=== PATIENT | male | born 1965 | race Caucasian/White ===

== ENCOUNTER 2025-05-01 08:11 | Emergency (ER) | payer BC, SELFPAY ==
--- OUTSIDE RECORDS SUMMARY | 2025-05-01 08:18 | XMS_ITS | Encounter Summary ---
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 Gender Identity Not on file Sexual Orientation Not on file documented as of this encounter Plan of Treatment Not on file documented as of this encounter Procedures Procedure Name Priority Date/Time Associated Diagnosis Comments SCAN - RADIOLOGY/IMAGING 11/21/2018 documented in this encounter Results * SCAN - RADIOLOGY/IMAGING (11/21/2018) Anatomical Region Laterality Modality Other us Provider Scanning Final Result documented in this encounter Visit Diagnoses Not on filedocumented in this encounter Care Teams Logistics Tech Relationship Specialty Start Date End Date Edwin Galeano MD [address] [place] [address] PCP - General 09/04/17 documented as of this encounter
--- OUTSIDE RECORDS SUMMARY | 2025-05-01 08:19 | XMS_ITS | Clinical Summary ---
Author Organization [facility] Address Formerly [facility] [place] [address] Care Team Providers Care Wood Patternmaker Name Role Phone Keyana Carrizales PA-C Primary Care Provider [phone] Allergies No known active allergies Medications XELJANZ XR 11 MG TABLET SR 24 HR 24 hour tablet Take 11 mg by mouth daily. 04/30/2024 Active Social History Tobacco Use Types Packs/Day Years Used Date Smoking Tobacco: Never Passive Smoke Exposure: Never Smokeless Tobacco: Never Tobacco Cessation:Counseling Given: Not Answered Alcohol Use Standard Drinks/Week Comments Yes 0 (1 standard drink = 0.6 oz pur e alcohol) Sex and Gender Information Value Date Recorded Sex Assigned at Not on file Legal Sex Male 5:51 PM CDT Gender Identity Not on file Sexual Orientation Not on file Last Filed Vital Signs Vital Sign Reading Time Taken Comments Blood Pressure 136/62 05/24/2024 3:55 AM MILL ATTENDANT Pulse 81 05/24/2024 3:55 AM MILL ATTENDANT Temperature 36.6 C (97.9 F) 05/24/2024 3:55 AM MILL ATTENDANT Respiratory Rate 14 05/24/2024 3:55 AM MILL ATTENDANT Oxygen Saturation 97% 05/24/2024 3:55 AM MILL ATTENDANT Inhaled Oxygen Concentration - - Weight 108.9 kg (240 lb) 05/24/2024 1:23 AM MILL ATTENDANT Height 172.7 cm (5' 8) 05/24/2024 1:23 AM MILL ATTENDANT Body Mass Index 36.49 05/24/2024 1:23 AM MILL ATTENDANT Plan of Treatment Health Maintenance Due Date Last Done Comments Colorectal Cancer Screening Colonoscopy (10 Years) 1966 Annual Physical 1969 Hepatitis C 1984 Hepatitis B Vaccines (1 of 3 - 19+ 3-dose series) 1985 COVID-19 Vaccine ( - 2024-2 6 season) 2025 Influenza Adult (#1) 2025 05/16/2024, 05/03/2023 DTaP, Tdap and Td Vaccines ( 3 - Td or Tdap) 01/09/2028 01/08/2018, 03/16/2013 Zoster Vaccines Completed 12/24/2020, 10/16/2020 Pneumococcal Vaccine: 50+ Years Completed 05/03/2023 Hepatitis A Vaccines Aged Out No long er eligible based on patient's age to complete this topic Meningococcal B Vaccine Aged Out No l onger eligible based on patient's age to complete this topic Meningococcal Vaccine Aged Out No kaiden sandra eligible based on patient's age to complete this topic RSV Immunizations Under 20 Months Aged Out No longer eligible b ased on patient's age to complete this topic Additional Health Concerns Infection Onset Date Last 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
--- OUTSIDE RECORDS SUMMARY | 2025-05-01 08:19 | XMS_ITS | Clinical Summary ---
Author Organization [facility] Address [address] [place] [address] Care Team Providers Care Dress Finisher Name Role Phone Edwin Galeano MD Primary Care Provider [phone] Allergies No known active allergies Medications ibuprofen (ADVIL,MOTRIN) 800 mg tablet Take 1 tablet (800 mg total) by mouth 3 (three) times a day as needed 01/09/20 18 Active diclofenac sodium (VOLTAREN) 1 % gelIndications: Osteoarthritis Apply 4 g topically 4 (four) times a day 50 g 2 05/16/20 24 Active Xeljanz XR 11 mgIndications:H igh risk medication use,Rheumatoid arthritis with positive rheumatoid factor, involving unspecified site (HCC) TAKE 1 TABLET DAILY 30 tablet 2 04/07/20 25 Active hydroxychloroqu ine (PLAQUENIL) 200 mg tabletIndicatio ns:Rheumatoid arthritis with positive rheumatoid factor, involving unspecified site (HCC) Take 2 tablets (400 mg total) by mouth daily 180 tablet 1 08/22/19 25 025 Discontinued(Juan marin Reported) tofacitinib (Xeljanz XR) 11 mgIndications:H igh risk medication use,Rheumatoid arthritis with positive rheumatoid factor, involving unspecified site (HCC) Take 1 tablet (11 mg total) by mouth daily 90 tablet 01/28/20 25 025 Discontinued Active Problems Problem Noted Date Diagnosed Date High risk medication use 01/30/2025 Assessment & Plan (01/30/2025 9:13 AM CDT): Recently started HCQ 400mg daily. No ocular contraindications to continued use. HVF 10-2 and OCT 5 line macula normal today. Return in 1 year for DFE- after 5 years of cumulative use will repeat HVF 10-2 and OCT 5 line macula annually with DFE per AAO guidelines. Rheumatoid arthritis with positive rheumatoid fa ctor 01/30/2025 Age-related nuclear cataract of both eyes 2024 Assessment & Plan (01/30/2025 9:50 AM CDT): NVS, follow. Rheumatoid arthritis involvi ng both hands with negative rheumatoid factor 05/16/2024 Arthritis 06/15/2017 Encounters Date Type Department Care Team Description 04/10/2025 11:20 AM CDT Lab [facility] Endocrinology Metabolism and Lipid [address] [place] [phone] High risk medication use; Rheumatoid arthritis involving both hands with negative rheumatoid factor (HCC) 04/10/2025 10:56 AM CDT - 04/10/2025 11:59 PM CDT Hospital Encounter [facility] [address] [place] [address] High risk medication use; Rheumatoid arthritis involving both hands with negative rheumatoid factor (HCC) Discharge Disposition: Discharge to home or self care 04/10/2025 9:30 AM CDT Office Visit [facility] Rheumatology [address] [place] [phone] Home Mccormack MD High risk medication use (Primary Dx); Rheumatoid arthritis involving both hands with negative rheumatoid factor (HCC) 04/10/2025 Results Follow-Up [facility] Rheumatology [address] [place] [id number] Home Mccormack MD CBC with auto differential, Comprehensive metabolic panel, CRP (acute phase), Additional followed-up results: 2 01/30/2025 9:40 AM CDT Office Visit [facility] Ophthalmology [address] [address] Steska, Alexander E., OD Age-related nuclear cataract of both eyes (Primary Dx); High risk medication use; Rheumatoid arthritis with positive rheumatoid factor, involving unspecified site (HCC) from Last 3 Months Immunizations Immunization Administration Dates Next Due Influenza, Trivalent, High D ose, Split, Preservative Free, Intramuscular 05/16/2024,05/03/2023 Pneumococcal Conjugate Pcv20 05/03/2023 Tdap 01/08/2018,03/16/2013 ZOSTER Recombinant 12/24/2020,10/16/2020 Surgical History Surgery Date Site/Laterality Comments BACK SURGERY TOTAL HIP ARTHROPLASTY 09/21/2017 Right TOTAL HIP ARTHROPLASTY 11/21/2017 Left Medical History Medical History Date Comments Osteoarthritis Anemia Obesity Family History Medical History Relation Name Comments Diabetes Father Hypertension Mother Relation Name Status Comments Father Alive Mother Alive Social History Tobacco Use Types Packs/Day Years Used Date Smoking Tobacco: Never Smokeless Tobacco: Never Tobacco Cessation:Counseling Given: Not Answered Sex and Gender Information Value Date Recorded Sex Assigned at Not on file Legal Sex Male 7:48 PM NETWORK 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 Gender Identity Not on file Sexual Orientation Not on file Obstetrics History Last Filed Vital Signs Vital Sign Reading Time Taken Comments Blood Pressure 158/90 04/10/2025 10:06 AM CDT Pulse 59 04/10/2025 10:06 AM CDT Temperature 36.7 C (98 F) 08/22/2024 9:01 AM NETWORK LIAISON Respiratory Rate - - Oxygen Saturation 96% 11/22/2017 7:40 AM CDT Inhaled Oxygen Concentration - - Weight 104.3 kg (230 lb) 04/10/2025 10:06 AM CDT Height 175.3 cm (5' 9) 04/10/2025 10:06 AM CDT Body Mass Index 33.97 04/10/2025 10:06 AM CDT Plan of Treatment Health Maintenance Due Date Last Done Comments Depression Screening 1966 Prostate Cancer Screening-PSA 1966 Regular Well Visit/Exam 18-64 1984 Influenza Vaccine (#1) 2025 05/16/2024, 2022 Colon Cancer Screening-Colonoscopy 08/30/2027 08/30/2017 DTaP/Tdap/Td Vaccine (3 - Td or Tdap) 01/09/2028 01/08/2018, 03/16/2013 Colon Cancer Screening-CT Colonography Discontinued 08/30/2017 Colon Cancer Screening-DNA Stool Discontinued 08/30/2017 Colon Cancer Screening-FIT Discontinued 08/30/2017 Colon Cancer Screening-Sigmoidoscopy Discontinued 08/30/2017 Hepatitis B Screening Completed 10/05/2020 Hepatitis C Screening Completed 10/05/2020 , 08/15/2019, 10/05/2017, Additional history exists Zoster Vaccine Completed 12/24/2020, 10/16/2020 Pneumococcal vaccine <65 Aged Out 05/03/2023 No longer eligible based on patient's age to complete this topic Procedures Procedure Name Priority Date/Time Associated Diagnosis Comments LIPID PANEL Routine 04/10/2025 10:56 AM CDT High risk medication use Rheumatoid arthritis involving both hands with negative rheumatoid factor (HCC) ERYTHROCYTE SEDIMENTATION RATE Routine 04/10/2025 10:56 AM CDT High risk medication use Rheumatoid arthritis involving both hands with negative rheumatoid factor (HCC) CRP (ACUTE PHASE) Routine 04/10/2025 10: 56 AM CDT High risk medication use Rheumatoid arthritis involving both hands with negative rheumatoid factor (HCC) COMPREHENSIVE METABOLIC PANEL Routine 04/10/2025 10:56 AM CDT High risk medication use Rheumatoid arthritis involving both hands with negative rheumatoid factor (HCC) CBC WITH AUTO DIFFERENTIAL Routine 04/10/2025 10:56 AM CDT High risk medication use Rheumatoid arthritis involving both hands with negative rheumatoid factor (HCC) T-SPOT.TB Routine 04/10/2025 10:56 AM CDT High risk medication use Rheumatoid arthritis involving both hands with negative rheumatoid factor (HCC) OCT, RETINA - OU - BOTH EYES Routine 01/30/2025 9:10 AM CDT High risk medication use LOPEZ VISUAL FIELD - OU - BOTH EYES Routine 01/30/2025 9:10 AM CDT High risk medication use HEPATITIS C ANTIBODY Routine 10/05/2020 12:40 PM CDT High risk medication use Rheumatoid arthritis with positive rheumatoid factor, involving unspecified site (HCC) COLONOSCOPY REPORT 08/30/2017 from Last 3 Months or Most Recently Relevant to Health Maintenance Results * T-SPOT.TB Blood (04/10/2025 10:56 AM CDT) T-SPOT.TB Negative SeeBelow Comment: Normal Value: Negative A negative test result does not exclude the possibility of exposure to or infection with Mycobacterium tuberculosis (M. tuberculosis). Patients with recent exposure to TB infected individuals exhibiting a negative T-SPOT.TB result should be considered for retesting within 6 weeks or if other relevant clinical symptoms indicate. Results from T-SPOT.TB testing must be used in conjunction with each individual's epidemiological history, current medical status, and results of other diagnostic evaluations. The T-SPOT.TB test is qualitative and results are reported as positive, borderline or negative, given that the test controls perform as expected. In line with the Centers for Disease Control and Prevention's 2010 recommendation to report quantitative measurements alongside the qualitative result, the laboratory provides spot counts for informational purposes only. The T-SPOT.TB test should not be interpreted as a quantitative test. T-SPOT.TB Panel A Spot Count 0 [facility] T-SPOT.TB Panel B Spot Count 0 [facility] T-SPOT.TB Negative Control Passed [facility] T-SPOT.TB Positive Control Passed [facility] Comment: Test Performed at: [employer] [facility] [employer] [address] [place] [id number] NATHANIEL RG,PHD Blood 04/10/2025 10:5 6 AM CDT 04/10/2025 1:44 PM CDT us Home Mccormack MD LAB MICROBIOLOGY - GENER AL ORDERABLES Final Result [facility] Department [place] [address] * (ABNORMAL) CBC with auto differential (04/10/2025 10:56 AM CDT) White Blood Count 14.8(H) 3.6 - 11.2 K/uL [facility] RBC 4.49 4.06 - 5.63 M/uL [facility] Hemoglobin 12.8(L) 13.0 - 17.5 g/dL [facility] Hematocrit 39.3(L) 40.7 - 50.3 % [facility] MCV 87.5 80.0 - 97.6 fL [facility] MCH 28.5 26.7 - 33.7 pg [facility] MCHC 32.5(L) 32.7 - 35.5 g/dL [facility] RBC Dist Width 16.2 12.3 - 17.0 % [facility] Platelet Count 433 140 - 440 K/uL [facility] MPV 7.2 6.8 - 10.4 fL [facility] Neutrophils % 84.4(H) 38.7 - 74.5 % [facility] Lymphocyte % 8.3(L) 20.0 - 54.3 % [facility] Monocytes % 6.2 4.3 - 13.5 % [facility] Eosinophils % 0.8 0.0 - 6.0 % [facility] Basophil % 0.3 0.0 - 3.0 % [facility] Absolute Neutrophil 12.5(H) 1.8 - 6.6 K/uL [facility] Absolute Lymphocyte 1.2 0.8 - 3.3 K/uL [facility] Absolute Monocyte 0.9 0.2 - 1.2 K/uL [facility] Absolute Eosinophil 0.1 0.0 - 0.5 K/uL [facility] Absolute Basophil 0.0 0.0 - 0.2 K/uL [facility] Nucleated RBC % 0.0 0.0 - 0.4 /100 WBC [facility] Blood 04/10/2025 10:5 6 AM CDT 04/10/2025 11:14 AM CDT us Home Mccormack MD LAB BLOOD ORDERABLES Fin al Result [facility] * (ABNORMAL) Erythrocyte sedimentation rate (04/10/2025 10:56 AM CDT) Erythrocyte Sedimentation Rate 68(H) <20 mm/hr [facility] Blood 04/10/2025 10:5 6 AM CDT 04/10/2025 11:14 AM CDT Home Mccormack MD LAB BLOOD ORDERABLES Fin al Result Performing Organization Address [facility] Co de Phone Number [facility] * (ABNORMAL) CRP (acute phase) (04/10/2025 10:56 AM CDT) C-Reactive Protein, Acute 38.4(H) <5.0 mg/L [facility] Blood 04/10/2025 10:5 6 AM CDT 04/10/2025 11:14 AM CDT Home Mccormack MD LAB BLOOD ORDERABLES Fin al Result Performing Organization Address [facility] Co de Phone Number [facility] * (ABNORMAL) Lipid panel (04/10/2025 10:56 AM CDT) Triglycerides 149 <150 mg/dL [facility] Comment: Desirable: <150 mg/dL, fasting <175 mg/dL, non-fasting Total Cholesterol 231(H) <200 mg/dL [facility] Total HDL-C Direct 68 >40 mg/dL [facility] Comment:Repeated and Verifie d Non-HDL cholesterol 163 <220 mg/dL [facility] Calculated LDL Chol 137 <190 mg/dL [facility] Blood 04/10/2025 10:5 6 AM CDT 04/10/2025 11:14 AM CDT Narrative [facility] - 04/10/2025 12:29 PM CDT Beginning November 05, 2024, LDL are now calculated by the Painter-NIH equation (KYLEE Cardiol 2020;5:540-8) which is more accuarate than the older Friedewald equation in patients with low LDL cholesterol or high triglycerides. For adults ages 40-79, the ACC/AHA recommends discussing your 10-year atherosclerotic cardiovascular disease risk with your health care provider. https://www.acc.org/ASCVDApp us Home Mccormack MD LAB BLOOD ORDERABLES Fin al Result [facility] * (ABNORMAL) Comprehensive metabolic panel (04/10/2025 10:56 AM CDT) Total Protein 8.7(H) 6.1 - 8.4 g/dL [facility] Albumin 4.2 3.5 - 5.2 g/dL [facility] Calcium 9.9 8.6 - 10.3 mg/dL [facility] BUN 12 7 - 23 mg/dL [facility] Total Bilirubin 0.34 0.20 - 1.40 mg/dL [facility] Alk Phos, Total 90 35 - 129 IU/L [facility] AST (SGOT) 23 11 - 47 IU/L [facility] ALT (SGPT) 16 6 - 53 IU/L [facility] Creatinine 1.16 0.70 - 1.30 mg/dL [facility] Sodium 141 135 - 145 mmol/L [facility] Potassium 5.0 3.3 - 5.1 mmol/L [facility] Chloride 102 95 - 107 mmol/L [facility] CO2 Content 26 21 - 29 mmol/L [facility] Glucose 90 64 - 99 mg/dL [facility] Comment: NONFASTING GLUCOSE RANGE = 64-199 mg/dL FASTING GLUCOSE 64 - 99 = NORMAL FASTING GLUCOSE 100 - 125 = IMPAIRED FASTING GLUCOSE FASTING GLUCOSE >=126 = PROVISIONAL DIAGNOSIS OF DIABETES eGFR 73.0 >60.0 mL/min/1.7 3 m2 [facility] Comment:eGFR is calculated b y the CKD-EPIcr() equation (2020). Blood 04/10/2025 10:5 6 AM CDT 04/10/2025 11:14 AM CDT Home Mccormack MD LAB BLOOD ORDERABLES Fin al Result [facility] * OCT, Retina - OU - Both Eyes (01/30/2025 9:10 AM CDT) Anatomical Region Laterality Modality Head Optical Coherenc e Tomography Narrative 01/30/2025 9:10 AM CDT Right Eye Quality was good. Scan locations included subfoveal. Findings include normal observations. Left Eye Quality was good. Scan locations included subfoveal. Findings include normal observations. Notes No EZ loss Alexander Davidson OD OPHTH TOMOGRAPHY Final Resul t * Lopez Visual Field - OU - Both Eyes (01/30/2025 9:10 AM CDT) Anatomical Region Laterality Modality Head Visual Field Narrative 01/30/2025 9:10 AM CDT Right Eye Fixation was good. Cooperation was good. Reliability was good. Foveal threshold was normal. Findings include normal observations. Left Eye Fixation was borderline. Cooperation was good. Reliability was good. Foveal threshold was normal. Findings include normal observations. Notes Full, reliable OU Alexander Davidson OD OPHTH VISUAL FIELD Final Res ult * Hepatitis C antibody (10/05/2020 12:40 PM CDT) Hep C Ab Nonreactive Nonreactive [facility] Comment:Antibodies to HCV no t detected. Does NOT exclude the possibility of recent exposure to HCV. Blood specimen (specimen) 10/05/2020 12:40 PM CDT 10/05/2020 3:43 PM CDT Result [facility] Alexys Wiley MD PhD LAB MICROBIOL OGY - GENERAL ORDERABLES Edited Result - Final [facility] [place] [address] * COLONOSCOPY REPORT (08/30/2017) Anatomical Region Laterality Modality Other us Provider Scanning GI PROCEDURE ORDERABLES Final Result from Last 3 Months or Most Recently Relevant to Health Maintenance Insurance [facility] AET COVENTR HMO/[facility] [employer] [place] [facility] PPO [place] BLUE [employer] [place] Care Teams Dress Finisher Relationship Specialty Start Date End Date Edwin Galeano MD [address] [place] [id number] PCP - General 09/04/17
--- OUTSIDE RECORDS SUMMARY | 2025-05-01 08:19 | XMS_ITS | Encounter Summary ---
Author Organization [facility] Address [address] [place] [address] Phone Care Team Providers Care Electrical Installer Name Role Phone Edwin Galeano MD Primary Care Provider [phone] Encounter Details Date Type Department Care Team (Late st Contact Info) Description 04/10/2025 Results Follow-Up [facility] Medicine Rheumatology [address] [facility] [address] [place] [address] [place] [address] Home Mccormack MD [address] [facility] [address] [place], [place] [id number] CBC with auto differential, Comprehensive metabolic panel, CRP (acute phase), Additional followed-up results: 2 Social History Tobacco Use Types Packs/Day Years Used Date Smoking Tobacco: Never Smokeless Tobacco: Never Sex and Gender Information Value Date Recorded Sex Assigned at Not on file 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
--- OUTSIDE RECORDS SUMMARY | 2025-05-01 08:19 | XMS_ITS | Encounter Summary ---
Author Organization [facility] Address [facility] [place] [address] Care Team Providers Care Informix Developer Name Role Phone Unavailable Primary Care Provider Unavailabl e Encounter Details Date Type Department Care Team (Late st Contact Info) Description 09/20/2021 [facility] Outpatient Visit [facility] Orthopedics - Radiology [address] [place] [id number] Document, Scanned Social History Tobacco Use Types Packs/Day Years Used Date Smoking Tobacco: Never Smokeless Tobacco: Never Alcohol Use Standard Drinks/Week Comments Yes 0 (1 standard drink = 0.6 oz pur e alcohol) Sex and Gender Information Value Date Recorded Sex Assigned at Not on file Legal Sex Male 5:51 AM GENERAL DENTIST/OWNER Gender Identity Not on file Sexual Orientation Not on file COVID-19 Exposure Response Date Recorded In the last month, have you been in contact with someone who was confirmed or suspected to have Coronavirus / COVID-19? No / Unsure 08/29/2021 3:43 PM GENERAL DENTIST/OWNER documented as of this encounter Plan of Treatment Not on file documented as of this encounter Visit Diagnoses Not on filedocumented in this encounter
--- OUTSIDE RECORDS SUMMARY | 2025-05-01 08:20 | XMS_ITS | Clinical Summary ---
Author Organization [facility] [employer] Address [address] [facility] [place] [address] Care Team Providers Care Cupola Tender Name Role Phone Unavailable Primary Care Provider Unavailabl e Source Comments [facility] [employer],non-owned Affiliates and Associated Physician Practices is amultiple site organization consisting of ambulatory clinics and hospital sitesin [place], [place], [place]. This disclosure is being madepursuant to the Care Everywhere program and may not contain all information available regarding this patient. Last updated 18.[employer] Allergies No known active allergies Medications * Be aware that medications may not be up to date on this document. Alwaysverify current medications with the patient. acetaminophen (TYLENOL) 325 MG tablet Take 2 tablets by mouth every 6 hours as needed for Pain Maximum allowable Acetaminophen amount = 4 Grams (4000 mg) / 24 hours. 40 tablet 8 Active Additional Information Patient not taking.Reported on 09/09/2021 ibuprofen (MOTRIN) 800 MG tablet Take 1 tablet by mouth 3 times daily as needed for Pain 20 tablet 8 Active Additional Information Patient not taking.Reported on 09/09/2021 Active Problems No known active problems Immunizations Immunization Administration Dates Next Due TDAP (7yrs+) 01/08/2018 Social History Tobacco Use Types Packs/Day Years Used Date Smoking Tobacco: Never Smokeless Tobacco: Never Alcohol Use Standard Drinks/Week Comments Yes 0 (1 standard drink = 0.6 oz pur e alcohol) Sex and Gender Information Value Date Recorded Sex Assigned at Not on file Legal Sex Male 5:51 AM DISABILITY CASE 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 Gender Identity Not on file Sexual Orientation Not on file Last Filed Vital Signs Vital Sign Reading Time Taken Comments Blood Pressure 131/67 01/08/2018 7:15 AM CDT Pulse 99 01/08/2018 7:15 AM CDT Temperature 37 C (98.6 F) 01/07/2018 11:52 PM CDT Respiratory Rate 27 01/08/2018 7:15 AM CDT Oxygen Saturation 96% 01/08/2018 7:15 AM CDT Inhaled Oxygen Concentration - - Weight 104.3 kg (230 lb) 01/08/2018 12:00 AM CDT Height 157.5 cm (5' 2) 01/08/2018 12:00 AM CDT Body Mass Index 42.07 01/08/2018 12:00 AM CDT Plan of Treatment Health Maintenance Due Date Last Done Comments COLOGUARD (AGES 45-75) - COL ON CA SCREENING 1966 COLON MONITORING 1966 COLONOSCOPY - COLON CA SCREENING 1966 CT COLONOGRAPHY - COLON CA SCREENING 1966 Colorectal Cancer Screening 1966 FIT - COLON CA SCREENING 1966 FLEX SIG - COLON CA SCREENING 1966 LIPID TESTING 1966 HIV SCREENING 1981 HEPATITIS C SCREENING 11/01/1984 HEPATITIS B VACCINE (1 of 3 - 19+ 3-dose series) 1985 PNEUMOCOCCAL VACCINE 50+ (1 of 1 - PCV) 2016 ZOSTER VACCINE (1 of 2) 2016 DEPRESSION SCREENING 07/09/2024 COVID-19 VACCINE (1 - 2023-2 5 season) 2025 INFLUENZA VACCINE (#1) 2025 DTAP/TDAP/TD VACCINES (2 - T d or Tdap) 01/09/2028 01/08/2018 HIB VACCINE Aged Out No longer eligi ble based on patient's age to complete this topic HPV VACCINE Aged Out No longer eligi ble based on patient's age to complete this topic MENINGOCOCCAL (Group B) VACC INE SHARED DECISION-MAKING Aged Out No longer eligibl e based on patient's age to complete this topic MENINGOCOCCAL GROUPS A/C/Y/W VACCINE Aged Out No longer eligible b ased on patient's age to complete this topic Insurance [place]THE[place] AETNA TPL THIRD DEMOCRAT LIABILITY [employer] Party Liability
[2025-05-01 08:22] VITALS: BP 164/88; PULSE 68; RESP 18; TEMP 36.4; O2SAT 100
--- NOTE | 2025-05-01 08:46 | ED_ITS ---
HPI - Extremity Injury (Lower) General Chief Complaint: Extremity Injury, Lower Stated Complaint: L Leg Time Seen by Provider: 05/01/25 08:33 Source: patient and RN notes reviewed Mode of arrival: ambulatory Limitations: no limitations History of Present Illness HPI Narrative: Patient presents today complaining of a 2 day history of left leg pain and swelling extending from the knee to the ankle. Denies injury or trauma. Pain in the calf increases with walking. He has tried Aleve without improvement. Currently rates his pain at rest 8/10. Patient has rheumatoid arthritis for which he takes Xeljanz. Denies chest pain, shortness of breath, numbness or tingling. Related Data Home Medications ?Medication ?Instructions ?Recorded ?Confirmed ?Last Taken ?Type tofacitinib 11 mg tablet,extended mg PO 05/01/25 Unkn own History release 24 hr (Xeljanz XR) Allergies Allergy/AdvReac Type Severity Reaction Status Date / Time No Known Allergies Allergy Verified 05/01/25 08:23 [facility] Past Medical History Medical History (Updated 05/01/25 @ 08:59 by Yuliya Leos APRN, FNP) Rheumatoid arthritis Umbilical hernia without mention of obstruction or gangrene Polyarthropathy of joints of lower leg Surgical History Surgical History History of total left hip arthroplasty History of total right hip arthroplasty Family History Family History Mother Hypertension Patient's mother is in good health Sibling Hypertension Patient's sister is in good health Patient's brother is in good health Father Patient's father is in good health Other Family history of malignant neoplasm Social History Social History Smoking status: Never smoker Alcohol intake: current Comments At time of signature, I have reviewed and agree with nursing past medical, surgical, social and family history unless otherwise noted. Please see nursing chart for further information. There is no relevant family history pertinent to the presenting complaint Exam Narrative: GENERAL: Well-appearing, well-nourished, and in no acute distress. HEAD: Normocephalic, atraumatic. EYES: EOMI. No redness or drainage. Conjunctivae normal. ENT: Mucous membranes pink and moist. NECK: Normal AROM. CHEST: No respiratory distress. EXTREMITIES: Left leg: Scant edema to the calf. Patient localized calf pain to the posterolateral aspect that is NTTP. +homans. Ankle markedly edematous. No erythema to the leg. Distal sensation intact. Capillary refill normal. Strong pedal pulse. Full AROM of the knee and ankle. Right calf measuring 43.5cm, left 44.5cm SKIN: Warm, dry, no rash. Capillary refill normal. Normal skin turgor. NEURO: No focal deficits. Alert and oriented x3. Gait steady. PSYCH: Normal affect. No signs of depression or anxiety. Course Course Level of Care: Express Care Visit Vital Signs Vital signs: Vital Signs Temperature 97.5 F L 05/01/25 08:22 Pulse Rate 68 05/01/25 08:22 Respiratory Rate 18 05/01/25 08:22 Blood Pressure 164/88 H 05/01/25 08:22 Pulse Oximetry 100 05/01/25 08:22 Oxygen Delivery Room Air 05/01/25 08:22 Temperature 97.5 F L 05/01/25 08:22 Pulse Rate 68 05/01/25 08:22 Respiratory Rate 18 05/01/25 08:22 Blood Pressure 164/88 H 05/01/25 08:22 Pulse Oximetry 100 05/01/25 08:22 Oxygen Delivery Room Air 05/01/25 08:22 Reviewed Transfer Transfered to: [place] Transportation: Other (Private vehicle) Transfer rationale: Left leg swelling and pain Accepting physician: Matt [facility] - Extremity Injury (Lower) [facility] Narrative Medical decision making narrative: Patient presents today complaining of a 2 day history of left leg pain and swelling extending from the knee to the ankle. Denies injury or trauma. Pain in the calf increases with walking. He has tried Aleve without improvement. Upon exam, patient has marked swelling of the calf without tenderness. The calf has some scant swelling. +homans. Neurovascularly intact. Patient will be transferred to the ER for further evaluation of his symptoms. Vital signs stable. Patient agrees with plan. Report given to excepting physician Differential Diagnosis Differential diagnosis: Likely other (DVT, muscle strain, cellulitis) Critical Care Time Critical Care Time Critical Care Time: No Discharge Plan Discharge Clinical Impression: Left leg swelling Patient Disposition: Acute Care Hospital Condition: Stable Patient Language: Kazakh Prescriptions: No Action Xeljanz XR 11 mg tablet extended release 24 hr PO Follow-up/Referrals: Froylan,Edwin Heredia MD [Primary Care Provider] Time of Disposition: 08:50
== END 2025-05-01 08:50 | disposition short-term general hospital (02) ==
PROVIDERS: Emergency Provider Nurse Practitioner; PCP Internal Medicine
DX: R22.42 Localized swelling, mass and lump, left lower limb (principal); M06.9 Rheumatoid arthritis, unspecified; Z96.643 Presence of artificial hip joint, bilateral
CPT/HCPCS: 99212; G0463

== ENCOUNTER 2025-05-01 09:13 | Emergency (ER) | payer BC, SELFPAY ==
--- NOTE | ~2025-05-01 | US_ITS ---
EXAMINATION: US venous doppler LE , 05/01/2025 9:58 CDT HISTORY: lower leg swelling and pain Comparison: None Technique: Gomez-scale and color Doppler images were attempted of the lower saphenofemoral junction, common femoral vein,superficial femoral vein, proximal deep femoral vein, proximal deep femoral vein, popliteal vein and posterior tibial veins. Findings: Deep Venous System:Normal flow, augmentation and compressibility. No echogenic thrombus identified. The contralateral saphenofemoral junction appears unremarkable. Superficial Venous SystemNo superficial thrombophlebitis. Soft tissues: Soft tissues probable small Hillman's cyst is noted, outpatient MRI is suggested Impression: Negative for DVT. Reviewed, dictated and finalized at location P. Impression: Negative for DVT.
[2025-05-01 09:20] VITALS: BP 153/83; PULSE 70; RESP 18; TEMP 37; O2SAT 100
--- OUTSIDE RECORDS SUMMARY | 2025-05-01 09:23 | XMS_ITS | Encounter Summary ---
Author Organization [facility] Address [facility] [place] [address] Care Team Providers Care Philosophy Specialist Name Role Phone Unavailable Primary Care Provider Unavailabl e Encounter Details Date Type Department Care Team (Late st Contact Info) Description 09/20/2021 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 No / Unsure 08/29/2021 3:43 PM FEDERAL JUDICIAL LAW CLERK documented as of this encounter Plan of Treatment Not on file documented as of this encounter Visit Diagnoses Not on filedocumented in this encounter
--- OUTSIDE RECORDS SUMMARY | 2025-05-01 09:23 | XMS_ITS | Clinical Summary ---
Author Organization [facility] Address [address] [place] [address] Care Team Providers Care Record Center Specialist Name Role Phone Edwin Galeano MD Primary Care Provider [phone] Allergies No known active allergies Medications ibuprofen [...] Team Description 04/10/2025 11:20 AM CDT Lab [facility] Medicine Endocrinology Metabolism and Lipid [address] [place] [phone] High risk medication use; Rheumatoid arthritis involving both hands with negative rheumatoid factor (HCC) 04/10/2025 10:56 AM CDT - 04/10/2025 11:59 PM CDT Hospital Encounter [facility] [address] [place] [address] High risk medication use; Rheumatoid arthritis involving both hands with negative rheumatoid factor (HCC) Discharge Disposition: Discharge to home or self care 04/10/2025 9:30 AM CDT Office Visit [facility] Medicine Rheumatology [address] [place] [phone] Home Mccormack MD High risk medication use (Primary Dx); Rheumatoid arthritis involving both hands with negative rheumatoid factor (HCC) 04/10/2025 Results Follow-Up [facility] Medicine Rheumatology [address] [place] [phone] Home Mccormack MD CBC with auto differential, Comprehensive metabolic panel, CRP (acute phase), Additional followed-up results: 2 01/30/2025 9:40 AM CDT Office Visit [facility] Medicine Ophthalmology [address] [address] Steska, Alexander E., OD Age-related nuclear cataract [...] on file 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 T-SPOT.TB Panel A Spot Count 0 [facility] T-SPOT.TB Panel B Spot Count 0 [facility] T-SPOT.TB Negative Control Passed [facility] T-SPOT.TB Positive Control Passed [facility] Comment: Test Performed at: [facility] [employer] [address] [place] [id number] NATHANIEL RG,PHD Blood 04/10/2025 10:5 6 AM CDT 04/10/2025 1:44 PM CDT us Home Mccormack MD LAB MICROBIOLOGY - GENER AL ORDERABLES Final [facility] [place] [address] * (ABNORMAL) CBC with auto differential (04/10/2025 [...] MD LAB BLOOD ORDERABLES Fin al Result [facility] * (ABNORMAL) Erythrocyte sedimentation rate (04/10/2025 10:56 AM CDT) Erythrocyte Sedimentation Rate 68(H) <20 mm/hr [facility] Blood 04/10/2025 10:5 6 AM CDT 04/10/2025 11:14 AM CDT Home Mccormack MD LAB BLOOD ORDERABLES Fin al Result Performing Organization Address [facility] Co de Phone Number [facility] * (ABNORMAL) CRP (acute phase) (04/10/2025 10:56 AM CDT) C-Reactive Protein, Acute 38.4(H) <5.0 mg/L [facility] Blood 04/10/2025 10:5 6 AM CDT 04/10/2025 11:14 AM CDT Home Mccormack MD LAB BLOOD ORDERABLES Fin al Result Performing Organization Address [facility] Co de Phone Number [facility] * (ABNORMAL) [...] AM CDT 04/10/2025 11:14 AM CDT Narrative [facility] - 04/10/2025 12:29 PM CDT [...] MD LAB BLOOD ORDERABLES Fin al Result [facility] * OCT, [...] PM CDT) Hep C Ab Nonreactive Nonreactive [facility] Comment:Antibodies to HCV no t detected. Does NOT exclude the possibility of recent exposure to HCV. Blood specimen (specimen) 10/05/2020 12:40 PM CDT 10/05/2020 3:43 PM CDT Result [facility] Alexys Wiley MD PhD LAB MICROBIOL OGY - GENERAL ORDERABLES Edited Result - Final [facility] [place] [address] * COLONOSCOPY REPORT (08/30/2017) Anatomical Region Laterality Modality Other us Provider Scanning GI PROCEDURE ORDERABLES Final Result from Last 3 Months or Most Recently Relevant to Health Maintenance Insurance [facility] AET COVENTR HMO/POS [facility] AET[facility] P[facility] vozero [place] [facility] [place]PO [place] [email or web address] [place] Care Teams Record Center Specialist Relationship Specialty Start Date End Date Edwin Galeano MD [address] [place] [id number] PCP - General 09/04/17
--- OUTSIDE RECORDS SUMMARY | 2025-05-01 09:23 | XMS_ITS | Encounter Summary ---
Author Organization [facility] Address [address] [place] [address] Phone Care Team Providers Care Historic Clothing And Costume Maker Name Role Phone Edwin Galeano MD Primary Care Provider [phone] Encounter Details Date Type Department Care Team (Late st Contact Info) Description 04/10/2025 Results Follow-Up [facility] Medicine Rheumatology [address] [facility] [address] [place] [address] [place] [address] Home Mccormack MD [address] 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
--- OUTSIDE RECORDS SUMMARY | 2025-05-01 09:23 | XMS_ITS | Clinical Summary ---
Author Organization [facility] [employer] Address [address] [facility] [place] [address] Care Team Providers Care Tariff Inspector Name Role Phone Unavailable Primary Care Provider Unavailabl e Source Comments [facility] [employer],non-owned Affiliates and Associated Physician Practices is amultiple site organization consisting of ambulatory clinics and hospital sitesin [place], [place], [place] and [place]. This disclosure is being madepursuant to the Care Everywhere program and may not contain all information available regarding this patient. 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
--- OUTSIDE RECORDS SUMMARY | 2025-05-01 09:23 | XMS_ITS | Encounter Summary ---
Author Organization [facility] Address [address] [place] [address] Phone Care Team Providers Care Tax Appraiser Name Role Phone Edwin Galeano MD Primary Care Provider [phone] Encounter Details Date Type Department Care Team (Late st Contact Info) Description 11/21/2018 Orders Only [facility] Scanning, Provider Social History Tobacco Use Types Packs/Day Years Used Date Smoking Tobacco: Never Smokeless Tobacco: Never Sex and Gender Information Value Date Recorded Sex Assigned at Not on file 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
--- OUTSIDE RECORDS SUMMARY | 2025-05-01 09:23 | XMS_ITS | Clinical Summary ---
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 Pulse 81 05/24/2024 3:55 AM AIRPLANE FLIGHT ATTENDANT SUPERVISOR Temperature 36.6 C (97.9 F) 05/24/2024 3:55 AM AIRPLANE FLIGHT ATTENDANT SUPERVISOR Respiratory Rate 14 05/24/2024 3:55 AM AIRPLANE FLIGHT ATTENDANT SUPERVISOR Oxygen Saturation 97% 05/24/2024 3:55 AM AIRPLANE FLIGHT ATTENDANT SUPERVISOR Inhaled Oxygen Concentration - - Weight 108.9 kg (240 lb) 05/24/2024 1:23 AM AIRPLANE FLIGHT ATTENDANT SUPERVISOR Height 172.7 cm (5' 8) 05/24/2024 1:23 AM AIRPLANE FLIGHT ATTENDANT SUPERVISOR Body Mass Index 36.49 05/24/2024 1:23 AM AIRPLANE FLIGHT ATTENDANT SUPERVISOR Plan of Treatment Health Maintenance Due Date [...] 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
--- NOTE | 2025-05-01 09:47 | ED_ITS ---
HPI - Extremity Problem General Chief complaint: Extremity Problem,Nontraumatic Stated complaint: L Leg Swelling Time Seen by Provider: 05/01/25 09:21 Source: patient and RN notes reviewed Mode of arrival: ambulatory Limitations: no limitations History of Present Illness HPI Narrative: 59-year-old male patient presents to the ER sent from Urgent Care complaining of left leg swelling. Patient says started approximately 2-3 days ago. Patient denies any falls or injury. Patient says left lower leg is more swollen than his right. He also reports left calf pain. Patient says does travel a lot for work, he says he may be in a car sometimes 2 to 8 hours a day. Patient denies any recent surgeries, history of blood clots, no chemotherapy or history of cancer. Patient denies any chest pain, shortness of breath, dizziness, lightheadedness, nausea, vomiting, fevers, upper respiratory symptoms, or any other symptoms. Patient has not taking help with pain. Related Data Home Medications ?Medication ?Instructions ?Recorded ?Confirmed ?Last Taken ?Type tofacitinib 11 mg tablet,extended mg PO 05/01/25 Unkn own History release 24 hr (Xeljanz XR) Allergies Allergy/AdvReac Type Severity Reaction Status Date / Time No Known Allergies Allergy Verified 05/01/25 08:23 Review of Systems Review of Systems: CONSTITUTIONAL: Denies fever, chills, or sweats. EYES: Denies visual changes, redness, or discharge. ENT: Denies rhinorrhea, congestion, sore throat, or otalgia. CARDIOVASCULAR: Denies chest pain, dizziness, lightheadedness, palpitations,. Positive for left lower leg edema. RESPIRATORY: Denies cough difficulty breathing, wheezing, or dyspnea. GASTROINTESTINAL: Denies abdominal pain, nausea, vomiting, or diarrhea. GENITOURINARY: Denies dysuria or hematuria. SKIN: Denies rash or itching. MUSCULOSKELETAL: Denies back pain, joint pain, or myalgia. Positive for left calf pain NEUROLOGIC: Denies headache, numbness, or weakness. PSYCHIATRIC: Denies anxiety or depression. All other systems reviewed are negative, except as documented in HPI. [facility] Past Medical History Medical History Rheumatoid arthritis Umbilical hernia without mention of obstruction or gangrene Polyarthropathy of joints of lower leg Surgical History Surgical History History of total left hip arthroplasty History of total right hip arthroplasty Family History Family History Mother Hypertension Patient's mother is in good health Sibling Hypertension Patient's sister is in good health Patient's brother is in good health Father Patient's father is in good health Other Family history of malignant neoplasm Social History Social History Smoking status: Never smoker Alcohol intake: current Comments At the time of my signature, I reviewed and agree with the nursing past medical, surgical, social, and family history. There is no relevant family history pertinent to the patient complaint. Exam Narrative: GENERAL: This is a well-nourished, well-developed adult, in no apparent distress. They are non ill-appearing, nontoxic appearing. HEAD: normocephalic, atraumatic. EYES: Sclera clear/white. Conjunctiva normal. Vision is grossly intact. Extraocular movements intact EARS: External ears normal, Hearing grossly intact. NOSE: External nose normal THROAT: Mucous membranes moist, NECK: Neck supple, CARDIOVASCULAR: Regular rate and rhythm without murmurs, gallops, or rubs. RESPIRATORY: Clear to auscultation. Breath sounds equal bilaterally. No wheezes, rales, or rhonchi. SKIN: warm, Dry, intact with no suspicious lesions or rash, good texture and turgor. NEURO: awake, alert, and oriented to person, place and time. There were no obvious focal neurologic abnormalities. EXTREMITIES: Left lower extremity: No erythema, no warmth, no exudate,. Edematous compared to right. 1+ pitting to left lower extremity below the knee. Left calf is tender to palpate posteriorly. No palpable cord. Left pedal pulse 2 +and palpable. Capillary refill less than 2 seconds. Sensation intact. Neurovascular status intact distally. Normal range of motion. Right lower extremity without edema or swelling. Course Course Emergency Course: Portions of this record may have been created with voice recognition software Vital Signs Vital signs: Vital Signs Temperature 98.6 F 05/01/25 09:20 Pulse Rate 70 05/01/25 09:20 Respiratory Rate 18 05/01/25 09:20 Blood Pressure 153/83 H 05/01/25 09:20 Pulse Oximetry 100 05/01/25 09:20 Oxygen Delivery Room Air 05/01/25 09:20 Temperature 98.6 F 05/01/25 09:20 Pulse Rate 70 05/01/25 09:20 Respiratory Rate 18 05/01/25 09:20 Blood Pressure 153/83 H 05/01/25 09:20 Pulse Oximetry 100 05/01/25 09:20 Oxygen Delivery Room Air 05/01/25 09:20 Reviewed MDM - Extremity (Nontraumatic) MDM Narrative Medical decision making narrative: Wells score 4 there is concern for DVT, will obtain ultrasound imaging to rule out DVT left lower extremity. Ultrasound left lower extremity shows no evidence of a DVT, there is evidence of a small Hillman cyst to left knee. Outpatient MRI recommended if symptoms do not resolve. Could be related to patient's symptoms. Send patient home with a course of ketorolac as follow-up with ortho or PCP for further evaluation management is symptoms. Differential Diagnosis Differential diagnosis: Likely cellulitis, lower extremity edema, deep vein thrombosis of lower extremity and other (venous insufficiency, Hillman cyst) Imaging Data Radiologist's impression: ITS Impressions Venous Doppler Study 05/01/25 10:30 Impression: Negative for DVT. Critical Care Time Critical Care Time Critical Care Time: No Discharge Plan Discharge Clinical Impression: Pain and swelling of left lower extremity Hillman cyst Qualifiers: Laterality: left Qualified Code(s): M71.22 - Synovial cyst of popliteal space [Hillman], left knee Patient Disposition: Home Condition: Stable Instructions: Antibiotic Form, Hillman Cyst (ED) Additional Instructions: Ultrasound of your left lower extremity is negative for any blood clots. Does show a small Hillman's cyst to her left knee. Apply ice your knee 15 20 minutes at a time, few times a day. Take ketorolac as directed. Do not take any other NSAIDs such as ibuprofen, Naprosyn, naproxen, Advil, Motrin, etc. while taking ketorolac. You may alternate with Tylenol. Follow instructions on the bottle. Follow-up PCP on orthopedist in 3-5 days for further evaluation management. Return to ER if you developed redness, worsening swelling, severe pains, chest pain, difficulty breathing, fevers, or any serious concerns. Patient Language: Armenian Prescriptions: New ketorolac 10 mg tablet 10 mg PO Q6H PRN (Reason: pain) Qty: 20 0RF Rx Instructions: maximum total duration of 5 days from all oral, intranasal, or parenteral formulations No Action Xeljanz XR 11 mg tablet extended release 24 hr PO Follow-up/Referrals: Froylan,Edwin Heredia MD [Primary Care Provider] Rob Younger MD [Physician, Orthopedics] Time of Disposition: 10:53
--- OUTSIDE RECORDS SUMMARY | 2025-05-01 10:20 | XMS_ITS | Encounter Summary ---
Author Organization [facility] Address [facility] [place] [address] Care Team Providers Care Entry Level Sales Consultant Name Role Phone Unavailable Primary Care Provider Unavailabl e Encounter Details Date Type Department Care Team (Late st Contact Info) Description 09/20/2021 [facility] Outpatient Visit [facility] Orthopedics - Radiology [address] [place] [id number] Document, Scanned Social History Tobacco Use Types Packs/Day Years Used Date Smoking Tobacco: Never Smokeless Tobacco: Never Alcohol Use Standard Drinks/Week Comments Yes 0 (1 standard drink = 0.6 oz pur e alcohol) Sex and Gender Information Value Date Recorded Sex Assigned at Not on file 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 No / Unsure 08/29/2021 3:43 PM LEASE EXAMINER documented as of this encounter Plan of Treatment Not on file documented as of this encounter Visit Diagnoses Not on filedocumented in this encounter
--- OUTSIDE RECORDS SUMMARY | 2025-05-01 10:20 | XMS_ITS | Clinical Summary ---
Author Organization [facility] Address [address] [place] [address] Care Team Providers Care Retail Loan Originator Assistant Name Role Phone Edwin Galeano MD Primary Care Provider [phone] Allergies No known active allergies Medications ibuprofen [...] Team Description 04/10/2025 11:20 AM CDT Lab [facility] Medicine Endocrinology Metabolism and Lipid [address] [place] [phone] High risk medication use; Rheumatoid arthritis involving both hands with negative rheumatoid factor (HCC) 04/10/2025 10:56 AM CDT - 04/10/2025 11:59 PM CDT Hospital Encounter [facility] [address] [place] [address] High risk medication use; Rheumatoid arthritis involving both hands with negative rheumatoid factor (HCC) Discharge Disposition: Discharge to home or self care 04/10/2025 9:30 AM CDT Office Visit [facility] Medicine Rheumatology [address] [place] [phone] Home Mccormack MD High risk medication use (Primary Dx); Rheumatoid arthritis involving both hands with negative rheumatoid factor (HCC) 04/10/2025 Results Follow-Up [facility] Medicine Rheumatology [address] [place] [phone] Home Mccormack MD CBC with auto differential, Comprehensive metabolic panel, CRP (acute phase), Additional followed-up results: 2 01/30/2025 9:40 AM CDT Office Visit [facility] Medicine Ophthalmology [address] [address] Steska, Alexander E., OD Age-related nuclear cataract [...] on file Legal Sex Male 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 T-SPOT.TB Panel A Spot Count 0 [facility] T-SPOT.TB Panel B Spot Count 0 [facility] T-SPOT.TB Negative Control Passed [facility] T-SPOT.TB Positive Control Passed [facility] Comment: Test Performed at: [facility] [address] [place] [phone] NATHANIEL RG,PHD Blood 04/10/2025 10:5 6 AM CDT 04/10/2025 1:44 PM CDT us Home Mccormack MD LAB MICROBIOLOGY - GENER AL ORDERABLES Final Result [facility] Department [place] [address] * (ABNORMAL) CBC with auto differential (04/10/2025 [...] MD LAB BLOOD ORDERABLES Fin al Result [facility] * (ABNORMAL) Erythrocyte sedimentation rate (04/10/2025 10:56 AM CDT) Erythrocyte Sedimentation Rate 68(H) <20 mm/hr [facility] Blood 04/10/2025 10:5 6 AM CDT 04/10/2025 11:14 AM CDT Home Mccormack MD LAB BLOOD ORDERABLES Fin al Result Performing Organization Address [facility] Co de Phone Number [facility] * (ABNORMAL) CRP (acute phase) (04/10/2025 10:56 AM CDT) C-Reactive Protein, Acute 38.4(H) <5.0 mg/L [facility] Blood 04/10/2025 10:5 6 AM CDT 04/10/2025 11:14 AM CDT Home Mccormack MD LAB BLOOD ORDERABLES Fin al Result Performing Organization Address [facility] Co de Phone Number [facility] * (ABNORMAL) [...] AM CDT 04/10/2025 11:14 AM CDT Narrative [facility] - 04/10/2025 12:29 PM CDT [...] MD LAB BLOOD ORDERABLES Fin al Result [facility] * OCT, [...] PM CDT) Hep C Ab Nonreactive Nonreactive [facility] Comment:Antibodies to HCV no t detected. Does NOT exclude the possibility of recent exposure to HCV. Blood specimen (specimen) 10/05/2020 12:40 PM CDT 10/05/2020 3:43 PM CDT Result [facility] Alexys Wiley MD PhD LAB MICROBIOL OGY - GENERAL ORDERABLES Edited Result - Final [facility] Department [place] [address] * COLONOSCOPY REPORT (08/30/2017) Anatomical Region Laterality Modality Other us Provider Scanning GI PROCEDURE ORDERABLES Final Result from Last 3 Months or Most Recently Relevant to Health Maintenance Insurance [facility] Member Subscriber Plan / Payer (Ef fective 2017-Present) Name:Ata Montilla Relation to Subscriber:Self Name:ATA MONTILLA Payer ID:[id number] ([facility]) Type:AETNA HMO/PPO Address: [address] [place] [address] [facility]ETNA [facility] Member Subscriber Plan / Payer (Ef fective 2017-Present) Name:Ata Montilla Relation to Subscriber:Self Name:ATA MONTILLA Payer ID:[id number] ([facility]) Type:AETNA HMO/PPO Address: [address] [address] [place] [address] [employer] [place] Member Subscriber Plan / Payer (Ef fective 2018-Present) Name:Ata Montilla Relation to Subscriber:Self Name:Ata Montilla Payer ID:[id number] ([facility]) Type:BC OTHER Address: [address] [place] [address] [facility] PPO [place] Member Subscriber Plan / Payer ( fective 2019-Present) Name:Ata Montilla Relation to Subscriber:Self Name:Ata Montilla Payer ID:[id number] ([facility]) Type:HEALTHCARE/EXCHANGE Address: [address] [place] [address] [employer] [place] Care Teams Retail Loan Originator Assistant Relationship Specialty Start Date End Date Edwin Galeano MD [address] [place] [id number] PCP - General 09/04/17
--- OUTSIDE RECORDS SUMMARY | 2025-05-01 10:20 | XMS_ITS | Encounter Summary ---
Author Organization [facility] Address [address] [place] [address] Phone Care Team Providers Care Thermite Welder Name Role Phone Edwin Galeano MD Primary Care Provider [phone] Encounter Details Date Type Department Care Team (Late st Contact Info) Description 11/21/2018 Orders Only [facility] Scanning, Provider Social History Tobacco Use Types Packs/Day Years Used Date Smoking Tobacco: Never Smokeless Tobacco: Never Sex and Gender Information Value Date Recorded Sex Assigned at Not on file 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
--- OUTSIDE RECORDS SUMMARY | 2025-05-01 10:20 | XMS_ITS | Clinical Summary ---
Author Organization [facility] Address [facility] [place] [address] Care Team Providers Care Preformer Impregnated Fabrics Name Role Phone Keyana Carrizales PA-C Primary Care Provider [phone] Allergies No known active allergies Medications XELJANZ [...] Comments Blood Pressure 136/62 05/24/2024 3:55 AM ADMINISTRATIVE PERSONAL ASSISTANT Pulse 81 05/24/2024 3:55 AM ADMINISTRATIVE PERSONAL ASSISTANT Temperature 36.6 C (97.9 F) 05/24/2024 3:55 AM ADMINISTRATIVE PERSONAL ASSISTANT Respiratory Rate 14 05/24/2024 3:55 AM ADMINISTRATIVE PERSONAL ASSISTANT Oxygen Saturation 97% 05/24/2024 3:55 AM ADMINISTRATIVE PERSONAL ASSISTANT Inhaled Oxygen Concentration - - Weight 108.9 kg (240 lb) 05/24/2024 1:23 AM ADMINISTRATIVE PERSONAL ASSISTANT Height 172.7 cm (5' 8) 05/24/2024 1:23 AM ADMINISTRATIVE PERSONAL ASSISTANT Body Mass Index 36.49 05/24/2024 1:23 AM ADMINISTRATIVE PERSONAL ASSISTANT Plan of Treatment Health Maintenance Due Date [...] 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
--- OUTSIDE RECORDS SUMMARY | 2025-05-01 10:20 | XMS_ITS | Encounter Summary ---
Author Organization [facility] Address [address] [place] [address] Phone Care Team Providers Care Supervisor Finishing Room Name Role Phone Edwin Galeano MD Primary Care Provider [phone] Encounter Details Date Type Department Care Team (Late st Contact Info) Description 04/10/2025 Results Follow-Up [facility] Medicine Rheumatology [address] 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
--- OUTSIDE RECORDS SUMMARY | 2025-05-01 10:20 | XMS_ITS | Clinical Summary ---
Author Organization [facility] Address [address] [facility] [place] [address] Care Team Providers Care Yard Coordinator Name Role Phone Unavailable Primary Care Provider Unavailabl e Source Comments [facility],non-owned Affiliates and Associated Physician Practices is amultiple site organization consisting of ambulatory clinics and hospital sitesin [place], [place], [place] and [place]. This disclosure is being madepursuant to the Care Everywhere program and may not contain all information available regarding this patient. Last updated 18.[employer] [facility] Allergies No known active allergies Medications * [...] on file Legal Sex Male 5:51 AM CRIMPER ASSEMBLER Gender Identity Not on file Sexual Orientation [...] this topic Insurance ANTHEM AETNA TPL THIRD LIBERTARIAN LIABILITY Constitution Party Liability
== END 2025-05-01 11:00 | disposition home or self-care (01) ==
PROVIDERS: PCP Internal Medicine
DX: R22.42 Localized swelling, mass and lump, left lower limb (principal); M79.605 Pain in left leg; M71.22 Synovial cyst of popliteal space [Baker], left knee; M06.9 Rheumatoid arthritis, unspecified; Z96.643 Presence of artificial hip joint, bilateral
CPT/HCPCS: 93971; 99284